=== PATIENT | female | born 1985 | race Caucasian/White ===

== ENCOUNTER 2017-04-20 06:54 | Emergency (ER) | payer BC ==
--- NOTE | 2017-04-20 07:33 | RAD ---
RIGHT ANKLE 3 VIEWS: HISTORY: A 31-year-old female with right foot and ankle pain after stepping in a hole and twisting the ankle. FINDINGS/IMPRESSION: No fracture, dislocation, or other significant acute osseous abnormality. POS: [facility]
[2017-04-20] MEDS ORDERED: Ibuprofen 800 MG TAB ONE (07:37)
== END 2017-04-20 07:45 | disposition home or self-care (01) ==
LOC: NAV ERS 06:54
DX: S93.401A Sprain of unspecified ligament of right ankle, initial encounter (principal); X50.1XXA Overexertion from prolonged static or awkward postures, initial encounter